=== PATIENT | male | born 1990 | race African-American/Black ===

== ENCOUNTER 2019-01-07 00:20 | Emergency (ER) | payer SELFPAY ==
[~2019-01-07] VITALS: Ht 182.9 cm; Wt 84.8 kg
[2019-01-07 01:45] LABS: Urine Bacteria NONE SEEN /hpf (None Seen); Urine Blood Negative /uL (Negative); Urine Mucus FEW (None Seen); Urine Specific Gravity 1.036 (1.001-1.035); Urine WBC 5 /hpf (0 - 3)
[2019-01-07] MEDS ORDERED: cefTRIAXone SOD 1,000 MG VL IM ONE (02:45)
[2019-01-07] MEDS ORDERED: PENICILLIN G BENZ 1200000 UNITS/2 ML SYRG IM ONE (02:45)
[2019-01-07 02:46] LABS: Amphetamine Screen, Urine NEGATIVE (NEGATIVE); Barbiturate Scree,Urine NEGATIVE (NEGATIVE); Benzodiazephine Screen, Urine NEGATIVE (NEGATIVE); Cocaine Screen, Urine NEGATIVE (NEGATIVE); Opiate Scree,Urine NEGATIVE (NEGATIVE); Phencyclidine Screen, Urine NEGATIVE (NEGATIVE)
[2019-01-07 02:54] LABS: Cannabinoid Screen, Urine POSITIVE (NEGATIVE)
[2019-01-07 03:00] VITALS: BP 121/61
== END 2019-01-07 03:18 | disposition home or self-care (01) ==
LOC: ER 00:25
DX: N48.5 Ulcer of penis (principal); Z20.2 Contact with and (suspected) exposure to infections with a predominantly sexual mode of transmission
CPT/HCPCS: 80307; 81001; 96372; 99283; J0561; J0696